=== PATIENT | male | born 1950 | race Caucasian/White ===

== ENCOUNTER 2023-04-27 17:59 | Emergency (ER) | payer OTHER, SELFPAY ==
--- NOTE | 2023-04-27 | ECG_ITS ---
Test Reason : HYPERTENSION Blood Pressure : / mmHG Vent. Rate : 073 BPM Atrial Rate : 073 BPM P-R Int : 158 ms QRS Dur : 094 ms QT Int : 366 ms P-R-T Axes : 028 -49 085 degrees QTc Int : 403 ms Artifact in tracing Normal sinus rhythm Incomplete right bundle branch block Left anterior fascicular block Minimal voltage criteria for LVH, may be normal variant ( R in aVL ) Nonspecific T wave abnormality Abnormal ECG No previous ECGs available Referred By: Generic ED Physician Electronically Signed By:MARY ERAZO
--- NOTE | 2023-04-27 07:49 | ECG_ITS ---
Test Reason : AMS Blood Pressure : / mmHG Vent. Rate : 073 BPM Atrial Rate : 073 BPM P-R Int : 188 ms QRS Dur : 092 ms QT Int : 412 ms P-R-T Axes : 008 045 029 degrees QTc Int : 453 ms Normal sinus rhythm Cannot rule out Inferior infarct , age undetermined Nonspecific ST and T wave abnormality Abnormal ECG When compared with ECG of 27-APR-2023 18:43, Left anterior fascicular block is no longer Present Incomplete right bundle branch block is no longer Present Referred By: Alireza Badillo Electronically Signed By:MARY ERAZO
[2023-04-27 18:56] LABS: MANUAL DIFF FLAG NO
[2023-04-27 18:59] VITALS: BP 186/95; BP 194/106; PULSE 78; PULSE 84; RESP 10; TEMP 37; O2SAT 97; O2SAT 98; BMI 32.8
[2023-04-27 19:03] LABS: Basophils Absolute Auto 0.1 X10*3/uL (0.0-0.2); Basophils Percent Auto 0.5 % (0-2); Eosinophils Absolute Auto 0.1 X10*3/uL (0.0-0.4); Eosinophils Percent Auto 1.4 % (0-4); Hematocrit 42.9 % (42.0-52.0); Hemoglobin 14.8 g/dl (14.0-18.0); Imm Gran Abs Auto 0.03 X10*3/uL (0.00-0.03); Imm Gran Pct Auto 0.3 % (0.0-0.4); Lymphocytes Absolute Auto 2.2 X10*3/uL (1.2-4.9); Lymphocytes Percent Auto 22.9 % (20-40); Mean Corpuscular HGB Conc 34.5 g/dl (31.0-36.0); Mean Corpuscular Volume 86.8 fL (80.0-98.0); Mean Platelet Volume 10.6 fL (9.4-12.4); Monocytes Absolute Auto 0.7 X10*3/uL (0.1-1.2); Monocytes Percent Auto 6.8 % (2-11); Neutrophils Absolute Auto 6.5 x10*3/uL (2.0-8.3); Neutrophils Percent Auto 68.1 % (45-73); Platelet Count 235 X10*3/uL (160-400); Red Blood Count 4.94 X10*6/uL (4.60-5.80); Red Cell Distribution Width 13.2 % (11.0-16.0); White Blood Count 9.6 X10*3/uL (4.8-10.8)
[2023-04-27 19:09] LABS: Prothrombin Time 12.2 SEC (11.1-13.3)
--- NOTE | 2023-04-27 19:09 | PC.NURSE ---
arrived via ambulance from [facility], eval of high blood pressure over past 2 days. 200s/100s. pt reports hargrove/dizziness. no blurry vision. on metoprolol. a+o x3, speech clear. neuros intact.
[2023-04-27 19:10] VITALS: BP 155/90; PULSE 71; RESP 16; O2SAT 96
[2023-04-27 19:18] LABS: Alanine Aminotransferase 18 U/L (0-40); Albumin Level 4.1 g/dL (3.5-5.0); Alkaline Phosphatase 74 U/L (39-117); Anion Gap 16 (12-20); Aspartate Amino Transferase 15 U/L (5-37); Bilirubin Total 0.5 mg/dL (0.0-1.0); Blood Urea Nitrogen 11 mg/dL (9-16); Calcium 9.8 mg/dL (8.4-10.2); Carbon Dioxide 29 mmol/L (22-29); Chloride 101 mmol/L (96-108); Creatinine Clr Calc Pharmacy 77.6; Estimated Glomerular Filt Rate > 60; Glucose Random 165 mg/dL (60-115); Sodium 142 mmol/L (135-145); Total Protein 7.6 g/dL (6.5-8.0)
--- NOTE | 2023-04-27 19:18 | PC.NURSE ---
Assumed care of pt at 19:30, A & O x 4, endorsing chronic L shoulder pain 01/21 but does not wish to be medicated, takes Gabapentin 3x daily. Endorses no other complaints at this time. Awaiting lab results and ED provider.
--- NOTE | 2023-04-27 19:22 | ED_ITS ---
HPI - General Adult General Chief complaint: General Medical Stated complaint: HIG BP 182/96,MEDS NOT WORKING X2 FROM SNF PER EMS Time Seen by Provider: 04/27/23 19:05 Source: patient Mode of arrival: EMS Limitations: no limitations History of Present Illness HPI narrative: Patient with anxiety depression came from assisted living place for elevated blood pressure of 200/100 last blood pressure was 182/96 on arrival was 194/106 repeat blood pressure was 154/82. Patient is stressed out because of the new facility which he does not like also worried about storm coming patient does not have any history of hypertension also complaining of chronic low back Related Data Allergies Allergy/AdvReac Type Severity Reaction Status Date / Time No Known Allergies Allergy Verified 04/27/23 19:49 Review of Systems 2 Review of Systems: Yes all other systems are reviewed and are negative [facility] Social History Social History Smoked in Last 30 Days: No Use of substances other than those prescribed or required for medical reasons: No Advance Directives: No Advance Directives Information Provided: No Physical Exam ED Vital Signs: Vital Signs - 24 hr 04/27/23 18:59 04/27/23 19:10 04/27/23 19:25 Temperature 98.6 F Pulse Rate 78 71 106 H Respiratory Rate 10 L 16 Blood Pressure 194/106 H 155/90 H 154/82 H Pulse Oximetry 97 96 97 Oxygen Delivery Method Room Air Room Air Room Air 04/27/23 20:00 Temperature Pulse Rate 80 Respiratory Rate 16 Blood Pressure 154/82 H Pulse Oximetry Oxygen Delivery Method BMI result Body Mass Index 32.8 Appearance: Alert. Oriented X3. No acute distress. Obese Eyes: PERRLA, No Nystagmus ENT: Pharynx normal. Oral Mucosa moist Neck: Normal inspection. Neck supple. CVS: Normal heart rate and rhythm. Pulses normal. Respiratory: No respiratory distress. Equal air entry bilateral, no wheezing/rales/rhonchi Abdomen: Soft and nontender. Bowel sounds are present, no mass palpable, no CVA tenderness Skin: Skin warm and dry. Normal skin color. Normal skin turgor. Extremities: No lower extremity edema. No calf tenderness Neuro: Oriented X 3. No motor deficit. Medications Administered Discontinued Medications Generic Name Dose Route Start Last Admin Trade Name Freq PRN Reason Stop Dose Admin Oxycodone HCl 10 mg 04/27/23 19:49 04/27/23 20:12 Oxycodone Hcl Immed Release 5 Mg Tablet PO 04/27/23 19:50 10 mg ONCE ONE Administration Medical Decision Making Medical Decision Making [facility] Narrative: Patient with transient elevated blood pressure secondary to stress with no history of hypertension repeat blood pressure stable labs are stable patient has a chronic low back pain was given oxycodone in the ER advised to close monitor the blood pressure and follow with PCP Lab Data [facility] Lab Attestation statement: I reviewed the patient's lab results. 04/27/23 18:52 04/27/23 18:52 Labs: Lab Results 04/27/23 Range/Units 18:52 WBC 9.6 (4.8-10.8) X10*3/uL RBC 4.94 (4.60-5.80) X10*6/uL Hgb 14.8 (14.0-18.0) g/dl Hct 42.9 (42.0-52.0) % MCV 86.8 (80.0-98.0) fL MCH 30.0 (27.0-33.0) pg MCHC 34.5 (31.0-36.0) g/dl RDW 13.2 (11.0-16.0) % Plt Count 235 (160-400) X10*3/uL MPV 10.6 (9.4-12.4) fL Immature Gran % (Auto) 0.3 (0.0-0.4) % Neut % (Auto) 68.1 (45-73) % Lymph % (Auto) 22.9 (20-40) % [place] % (Auto) 6.8 (2-11) % Eos % (Auto) 1.4 (0-4) % Baso % (Auto) 0.5 (0-2) % Lymph # (Auto) 2.2 (1.2-4.9) X10*3/uL [place] # (Auto) 0.7 (0.1-1.2) X10*3/uL Eos # (Auto) 0.1 (0.0-0.4) X10*3/uL Baso # (Auto) 0.1 (0.0-0.2) X10*3/uL Abs Immat Gran (auto) 0.03 (0.00-0.03) X10*3/uL Absolute Neuts (auto) 6.5 (2.0-8.3) x10*3/uL Absolute Nucleated RBC 0.000 (0.0-0.012) X10*3/uL Nucleated RBC % (auto) 0.0 (0.0-0.2) /100WBC PT 12.2 (11.1-13.3) SEC INR 1.0 (0.9-1.1) Sodium 142 (135-145) mmol/L Potassium 4.0 (3.3-5.1) mmol/L Chloride 101 (96-108) mmol/L Carbon Dioxide 29 (22-29) mmol/L Anion Gap 16 (12-20) BUN 11 (9-16) mg/dL Creatinine 1.10 (0.5-1.4) mg/dL Estim Creat Clear Calc 77.6 Estimated GFR > 60 Random Glucose 165 H (60-115) mg/dL Calcium 9.8 (8.4-10.2) mg/dL Total Bilirubin 0.5 (0.0-1.0) mg/dL AST 15 (5-37) U/L ALT 18 (0-40) U/L Alkaline Phosphatase 74 (39-117) U/L Troponin I High Sens 3.7 (<3.5-35.0) ng/L Total Protein 7.6 (6.5-8.0) g/dL Albumin 4.1 (3.5-5.0) g/dL Independent Interpretation I performed an independent interpretation of an: EKG Interpretation: Normal sinus rhythm heart rate 73 beats per minute incomplete RBBB mild LVH no acute ST-T changes no acute ischemia Discharge Plan Discharge Clinical Impression: Transient hypertension Patient Disposition: Home, Self-Care Instructions: Hypertension (ED) Additional Instructions: Check blood pressure daily You may have elevated blood pressure secondary to stress at this time there is no diagnosis of hypertension Follow-up with PCP Interventions: ED Discharge Assessment Last Done: 04/27/23 20:59 Discharge Date/Time: 04/27/23 21:00
[2023-04-27 19:25] VITALS: BP 154/82; PULSE 106; O2SAT 97
[2023-04-27 19:25] LABS: Troponin-I High Sensitivity 3.7 ng/L (<3.5-35.0)
[2023-04-27 20:00] VITALS: BP 154/82; PULSE 80; RESP 16
[2023-04-27] MEDS: oxyCODONE HCl Immed Release 5 MG TABLET 10 MG PO (20:12)
== END 2023-04-27 21:00 | disposition home or self-care (01) ==
PROVIDERS: Emergency Provider Internal Medicine
DX: R03.0 Elevated blood-pressure reading, without diagnosis of hypertension (principal); M54.50 Low back pain, unspecified; R41.82 Altered mental status, unspecified
CPT/HCPCS: 36415; 80053; 84484; 85025; 85610; 93005; 99283; 99285

== ENCOUNTER → 2023-04-27 18:43 | Outpatient (BNV) | payer OTHER, SELFPAY | PROVIDERS: Emergency Provider Internal Medicine; Visit Provider Internal Medicine | DX: R41.82 Altered mental status, unspecified (principal) | CPT/HCPCS: 93010 ==

== ENCOUNTER 2023-09-25 08:06 | Emergency (ER) | payer OTHER, SELFPAY ==
[2023-09-25] VITALS (8 sets, daily range): BP systolic 102–186; BP diastolic 60–96; PULSE 71–110; RESP 14–21; TEMP 36.3–36.7; O2SAT 93–97; BMI 32.5; BMI 33.6
--- NOTE | ~2023-09-25 | XR_ITS ---
EXAMINATION: XR CHEST CLINICAL INFORMATION: Chest pain COMPARISON: None available. TECHNIQUE: Frontal view of the chest was obtained. FINDINGS: Lungs grossly clear given portable lordotic positioning. Heart and pulmonary vessels are normal. XR/XR chest 1V IMPRESSION: No active disease.
--- NOTE | 2023-09-25 08:11 | ECG_ITS ---
Test Reason : chest pain Blood Pressure : / mmHG Vent. Rate : 086 BPM Atrial Rate : 086 BPM P-R Int : 166 ms QRS Dur : 076 ms QT Int : 414 ms P-R-T Axes : 063 -65 156 degrees QTc Int : 495 ms Normal sinus rhythm Left axis deviation Low voltage QRS Inferior-posterior infarct (cited on or before 27-APR-2023) Anterolateral infarct , age undetermined Abnormal ECG When compared with ECG of 27-APR-2023 18:53, Significant changes have occurred Referred By: Generic ED Physician Electronically Signed By:MARY ERAZO
[2023-09-25 08:38] LABS: MANUAL DIFF FLAG NO
[2023-09-25 08:40] LABS: Basophils Absolute Auto 0.1 X10*3/uL (0.0-0.2); Basophils Percent Auto 0.4 % (0-2); Eosinophils Absolute Auto 0.1 X10*3/uL (0.0-0.4); Eosinophils Percent Auto 0.6 % (0-4); Hematocrit 43.3 % (42.0-52.0); Hemoglobin 15.8 g/dl (14.0-18.0); Imm Gran Abs Auto 0.05 X10*3/uL (0.00-0.03); Imm Gran Pct Auto 0.4 % (0.0-0.4); Lymphocytes Absolute Auto 2.3 X10*3/uL (1.2-4.9); Lymphocytes Percent Auto 16.6 % (20-40); Mean Corpuscular HGB Conc 36.5 g/dl (31.0-36.0); Mean Corpuscular Hemoglobin 31.7 pg (27.0-33.0); Mean Corpuscular Volume 86.8 fL (80.0-98.0); Mean Platelet Volume 10.3 fL (9.4-12.4); Monocytes Percent Auto 7.2 % (2-11); Neutrophils Absolute Auto 10.3 x10*3/uL (2.0-8.3); Neutrophils Percent Auto 74.8 % (45-73); Platelet Count 232 X10*3/uL (160-400); Red Blood Count 4.99 X10*6/uL (4.60-5.80); Red Cell Distribution Width 12.2 % (11.0-16.0); White Blood Count 13.8 X10*3/uL (4.8-10.8)
--- NOTE | 2023-09-25 08:46 | ED.CHESTPAIN ---
HPI - Chest Pain General Chief Complaint: Chest Pain Stated Complaint: CHEST PAIN DOWN L ARM X24 HRS FROM [facility] PER EMS Time Seen by Provider: 09/25/23 08:15 Source: patient Mode of arrival: EMS Limitations: no limitations History of Present Illness ED Provider: HEIDI GALVIN narrative: 72 yo male with PMH of GERD, HTN, HLD, CAD s/p 2 stents at [facility] 13 years ago who presents with chest pain on and off for 2 days while at rest that he notes travels to L arm with mild dyspnea. He thought it was GERD. He notes this feels similar to when he had his prior stents. He is at [facility] and they gave him nitro last night which helped. EMS gave 324mg ASA this AM. MD complaint: chest pain Pertinent past history: coronary artery disease Onset (ago): day(s) (2) Timing of current episode: episodic Prior episodes: Yes Onset: during rest Pain location: substernal Pain radiation: left arm Severity: moderate Quality: heaviness Relieving factors: nitroglycerin Exacerbating factors: nothing Associated symptoms: dyspnea Treatment prior to arrival: aspirin Related Data Allergies Allergy/AdvReac Type Severity Reaction Status Date / Time No Known Allergies Allergy Verified 09/25/23 08:23 Review of Systems Review of Systems: Constitutional : No Weight loss, No Fever, No Chills ENT/Mouth : No sore throat, No Rhinorrhea Eyes: No Eye Pain, No Swelling Cardiovascular : pos Chest Pain, pos SOB, no Dyspnea on Exertion, No Orthopnea, No Edema, No Palpitations Respiratory : No Cough, No Sputum Gastrointestinal : no Nausea, No Vomiting, No Diarrhea, No abdominal Pain, No Hematochezia, No Melena Genitourinary : No Dysuria, No Urinary Frequency Musculoskeletal : No joint pain, No Myalgias, No Joint Swelling Skin : No Skin Lesions, No rash Neuro : No Weakness, No Numbness, No Dizziness, No Headache Psych : No Anxiety/Panic, No Depression All other systems reviewed and are negative [facility] Past Medical History Attestation statement: The following information was validated with the patient. Source: old records reviewed Medical History (Updated 09/25/23 @ 09:30 by Caroline Ziegler DO) Depression Hyperlipidemia CAD (coronary artery disease) HTN (hypertension) GERD (gastroesophageal reflux disease) Social History Social History (Updated 09/25/23 @ 08:53 by Caroline Ziegler DO) Patient Tobacco Use Status: Former Tobacco user Smoked in Last 30 Days: No Use of substances other than those prescribed or required for medical reasons: No Advance Directives: No Advance Directives Information Provided: Yes Physical Exam Vital Signs: Vital Signs: Last Vital Signs Temp 97.4 F 09/25/23 14:37 Pulse 82 09/25/23 14:37 Resp 14 09/25/23 14:37 BP 113/74 09/25/23 14:37 Pulse Ox 94 09/25/23 14:37 O2 Del Method Room Air 09/25/23 14:37 BMI result Body Mass Index 33.6 Appearance: Alert. Oriented X3. No acute distress. Eyes: Pupils equal, round and reactive to light. ENT: Pharynx normal. Neck: Normal inspection. Neck supple. CVS: Normal heart rate and rhythm. Pulses normal. Respiratory: No respiratory distress. Breath sounds normal. Abdomen: Soft and nontender. Skin: Skin warm and dry. Normal skin color. Normal skin turgor. Extremities: No lower extremity edema. venous stasis hyperpigmentation 2+ DP pulses Neuro: Oriented X 3. No motor deficit. No sensory deficit. Course Course Course Narrative: patient c/o chest pain at this time 940am nitro paste ordered he states it is 4/10. will reassess if he needs nitro gtt. I did notify [facility] and now they have escalated this to Dr. Cho Reevaluation(s) Reevaluation #1: no improvement with nitro paste still 4/10 will start nitro gtt 10am Dr. Cho accepts patient to [facility] Medications Administered Discontinued Medications Generic Name Dose Route Start Last Admin Trade Name Hannah PRN Reason Stop Dose Admin Atorvastatin Calcium 40 mg 09/25/23 09:25 09/25/23 09:40 Atorvastatin Calcium 40 Mg Tablet PO 09/25/23 09:26 40 mg ONCE ONE Administration Heparin Sodium (Porcine) 4,000 unit 09/25/23 09:25 09/25/23 10:00 Heparin Sodium,Porcine 5,000 Unit/Ml Vial IVPUSH 09/25/23 09:26 4,000 unit ONCE ONE Administration Heparin Sodium/Sodium Chloride 25,000 unit in 250 mls @ 0 mls/hr 09/25/23 10:00 09/25/23 10:07 Heparin Sodium,Porcine/1/2ns IVCONT 8.9 units/kg/hr .Q0M CAL 10 mls/hr Administration Protocol Per Protocol Nitroglycerin/Dextrose 100 mg in 250 mls @ 0 mls/hr 09/25/23 10:15 09/25/23 10:28 Nitroglycerin/D5w IVCONT 20 mcg/min .Q0M CAL 3 mls/hr Administration Protocol Per Protocol Nitroglycerin 1 inch 09/25/23 09:34 09/25/23 09:38 Nitroglycerin 2 % Oint 1 Gm Packet TRANSDERMA 09/25/23 09:35 1 inch ONCE ONE Administration Medical Decision Making Medical Decision Making MDM Narrative: 72 yo male with PMH of GERD, HTN, HLD, CAD s/p 2 stents at [facility] 13 years ago here with c/o chest pain that is similar to priors where he ended up with stents at this time given his history and concerning EKG changes I have ordered labs and did run the case by Cardiology who would recommend transfer to [facility]. The patient denies any contraindications to heparin. Troponin ordered, labs, CXR - he was already given aspirin by EMS and he states he is pain free. Differential Diagnosis Differential Diagnoses: The differential diagnosis associated with the presentation includes ACS, NSTEMI Admission/Observation Consideration of admission/observation: Escalation of care including admission/observation considered call to [facility] at 928am given EKG changes elevated troponin heparin, statin ordered Consult Healthcare Provider Management of the patient was discussed with: [employer] (Earle aware of EKG changes on arrival ) Lab Data [facility] Lab Attestation statement: I reviewed the patient's lab results. 09/25/23 10:17 09/25/23 08:34 Labs: Lab Results 09/25/23 09/25/23 Range/Units 08:34 10:17 WBC 13.8 H 15.4 H (4.8-10.8) X10*3/uL RBC 4.99 5.13 (4.60-5.80) X10*6/uL Hgb 15.8 16.2 (14.0-18.0) g/dl Hct 43.3 44.5 (42.0-52.0) % MCV 86.8 86.7 (80.0-98.0) fL MCH 31.7 31.6 (27.0-33.0) pg MCHC 36.5 H 36.4 H (31.0-36.0) g/dl RDW 12.2 12.2 (11.0-16.0) % Plt Count 232 225 (160-400) X10*3/uL MPV 10.3 10.2 (9.4-12.4) fL Immature Gran % (Auto) 0.4 (0.0-0.4) % Neut % (Auto) 74.8 H (45-73) % Lymph % (Auto) 16.6 L (20-40) % [place] % (Auto) 7.2 (2-11) % Eos % (Auto) 0.6 (0-4) % Baso % (Auto) 0.4 (0-2) % Lymph # (Auto) 2.3 (1.2-4.9) X10*3/uL [place] # (Auto) 1.0 (0.1-1.2) X10*3/uL Eos # (Auto) 0.1 (0.0-0.4) X10*3/uL Baso # (Auto) 0.1 (0.0-0.2) X10*3/uL Abs Immat Gran (auto) 0.05 H (0.00-0.03) X10*3/uL Absolute Neuts (auto) 10.3 H (2.0-8.3) x10*3/uL Absolute Nucleated RBC 0.000 0.000 (0.0-0.012) X10*3/uL Nucleated RBC % (auto) 0.0 0.0 (0.0-0.2) /100WBC PT 12.1 (11.1-13.3) SEC INR 1.0 (0.9-1.1) APTT 32.9 (26.0-36.8) SEC Sodium 137 (135-145) mmol/L Potassium 4.2 (3.3-5.1) mmol/L Chloride 102 (96-108) mmol/L Carbon Dioxide 24 (22-29) mmol/L Anion Gap 15 (12-20) BUN 14 (9-16) mg/dL Creatinine 0.98 (0.5-1.4) mg/dL Estim Creat Clear Calc 89.3 Estimated GFR > 60 Random Glucose 199 H (60-115) mg/dL Calcium 9.6 (8.4-10.2) mg/dL Magnesium 2.0 (1.6-2.6) mg/dL Total Bilirubin 0.5 (0.0-1.0) mg/dL Direct Bilirubin 0.1 (0.0-0.5) mg/dL AST 88 H (5-37) U/L ALT 40 (0-40) U/L Alkaline Phosphatase 82 (39-117) U/L Troponin I High Sens 29936.0 H* D (<3.5-35.0) ng/L B-Natriuretic Peptide 558 H (<100) pg/mL Total Protein 7.4 (6.5-8.0) g/dL Albumin 3.9 (3.5-5.0) g/dL COVID-19 (OSKAR) Negative (Negative) COVID-19 Clin Com See Note Independent Interpretation I performed an independent interpretation of an: EKG and Plain X-Ray Interpretation: Rate: 86 Rhythm: NSR [place]: left Normal P waves. Normal SHANI. Normal QRS complex. 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 . Radiology Impression Discussion of test interpretation with radiology: I have reviewed the radiologist's reading. Critical Care Time Critical Care Time Critical Care Time: Yes Total Critical Care Time: 60 Attestation: review of records, medical consult, nitro gtt for pain, transfer to tertiary center, repeat assessments I attest to this time spent taking care of the patient Discharge Plan Discharge Clinical Impression: Non-ST elevation [place] (NSTEMI), T wave inversion in EKG Chest pain Qualifiers: Chest pain type: precordial pain Qualified Code(s): R07.2 - Precordial pain Patient Disposition: Xfer Acute Care Hospital Transfer Details: [facility] Interventions: Acute Care Transfer Worksheet (ED) Last Done: 09/25/23 14:37 Discharge Date/Time: 09/25/23 14:39 Print Language: Croatian
[2023-09-25 08:48] LABS: Prothrombin Time 12.1 SEC (11.1-13.3)
[2023-09-25 08:50] LABS: Partial Thromboplastin Time 32.9 SEC (26.0-36.8)
[2023-09-25 08:59] LABS: Alanine Aminotransferase 40 U/L (0-40); Albumin Level 3.9 g/dL (3.5-5.0); Alkaline Phosphatase 82 U/L (39-117); Anion Gap 15 (12-20); Aspartate Amino Transferase 88 U/L (5-37); Bilirubin Direct 0.1 mg/dL (0.0-0.5); Bilirubin Total 0.5 mg/dL (0.0-1.0); Blood Urea Nitrogen 14 mg/dL (9-16); Calcium 9.6 mg/dL (8.4-10.2); Carbon Dioxide 24 mmol/L (22-29); Chloride 102 mmol/L (96-108); Creatinine Clr Calc Pharmacy 89.3; Estimated Glomerular Filt Rate > 60; Glucose Random 199 mg/dL (60-115); Potassium 4.2 mmol/L (3.3-5.1); Sodium 137 mmol/L (135-145); Total Protein 7.4 g/dL (6.5-8.0)
[2023-09-25 09:02] LABS: B Type Natriuretic Peptide 558 pg/mL (<100)
[2023-09-25] MEDS: Nitroglycerin 2 % Oint 1 GM Packet 1 INCH TRANSDERMA (09:38)
[2023-09-25] MEDS: Atorvastatin Calcium 40 MG TABLET PO (09:40)
[2023-09-25] MEDS: Heparin Sodium,Porcine 5,000 UNIT/ML VIAL 4000 UNIT IVPUSH (10:00)
[2023-09-25] MEDS: Heparin Sodium,Porcine/1/2NS 25,000 UNIT/250 ML IV.SOLN 10 UNIT IVCONT (10:07)
--- NOTE | 2023-09-25 10:18 | PC.NURSE ---
heparin drip started. lab called and time changed for repeat PT-HD for 160. nitropaste wiped clean off per verbal order from DR. Ziegler.
[2023-09-25 10:24] LABS: Hematocrit 44.5 % (42.0-52.0); Hemoglobin 16.2 g/dl (14.0-18.0); Mean Corpuscular HGB Conc 36.4 g/dl (31.0-36.0); Mean Corpuscular Hemoglobin 31.6 pg (27.0-33.0); Mean Corpuscular Volume 86.7 fL (80.0-98.0); Mean Platelet Volume 10.2 fL (9.4-12.4); Platelet Count 225 X10*3/uL (160-400); Red Blood Count 5.13 X10*6/uL (4.60-5.80); Red Cell Distribution Width 12.2 % (11.0-16.0); White Blood Count 15.4 X10*3/uL (4.8-10.8)
[2023-09-25] MEDS: Nitroglycerin/D5W 100 MG/250 ML INFUS..BTL IVCONT (10:28)
[2023-09-25 10:43] LABS: COVID-19 Test Negative (Negative); IDNOW Serial# 152EDE1D
--- NOTE | 2023-09-25 14:01 | PC.NURSE ---
report given to [address]
== END 2023-09-25 14:39 | disposition short-term general hospital (02) ==
PROVIDERS: Emergency Provider Emergency Medicine
DX: I21.4 Non-ST elevation (NSTEMI) myocardial infarction (principal); I10 Essential (primary) hypertension; I25.10 Atherosclerotic heart disease of native coronary artery without angina pectoris; Z95.5 Presence of coronary angioplasty implant and graft; Z11.52 Encounter for screening for COVID-19
CPT/HCPCS: 36415; 71045; 80048; 80076; 83735; 83880; 84484; 85025; 85027; 85610; 85730; 87635; 93005; 96374; 96375; 99285; J1644; J2305

== ENCOUNTER → 2023-09-25 08:11 | Outpatient (BNV) | payer OTHER, SELFPAY | PROVIDERS: Emergency Provider Emergency Medicine; Visit Provider Internal Medicine | DX: R07.9 Chest pain, unspecified (principal); R94.31 Abnormal electrocardiogram [ECG] [EKG] | CPT/HCPCS: 93010 ==

== ENCOUNTER 2024-02-25 17:46 | Emergency (ER) | payer OTHER, SELFPAY ==
--- NOTE | ~2024-02-25 | CT_ITS ---
EXAMINATION: CT HEAD WITHOUT CONTRAST CT MAXILLOFACIAL WITHOUT CONTRAST CT CERVICAL SPINE WITHOUT CONTRAST CLINICAL INFORMATION: Fall COMPARISON: None TECHNIQUE: Multidetector CT of the head, maxillofacial bones, and cervical spine was performed without intravenous contrast. Reformatted axial, coronal and sagittal images were reviewed. This CT examination was performed using dose optimization techniques as appropriate, variously including the following: *Automated exposure control *Adjustment of mA and/or kV according to patient size (this includes techniques or standardized protocols for targeted exams where dose is matched to indication/reason for exam; i.e. extremities or head) *Use of iterative reconstruction technique DLP: 417 mGy-cm FINDINGS: HEAD: No intracranial hemorrhage, extra-axial fluid collection, or midline shift is identified. Moncada-white matter differentiation is preserved. Prominence of the cerebral sulci with commensurate ventriculomegaly consistent with age-related cerebral volume loss. Dense calcification of the anterior falx. Basal cisterns are within normal limits. Paranasal sinuses are clear. Mastoid air cells and middle ear cavities are clear. No acute calvarial fractures. Dolichoectatic vertebrobasilar artery. MAXILLOFACIAL: No displaced fracture of the left frontal sinus. Overlying small subcutaneous hematoma. Foci of gas extends medially to the right lacrimal duct and along the right medial preseptal soft tissues. Fat stranding is present within the right medial extraconal fat. The intraconal fat appears within normal limits. No retrobulbar hematoma. The globes, lenses, extraocular muscles, and optic nerves appear within normal limits bilaterally. The lamina paprycea and floor and lateral schneider of the orbits are intact. There is no TMJ dislocation. Maxillary, sphenoid, and ethmoid sinuses are clear. CERVICAL SPINE: There is no fracture, malalignment or prevertebral soft tissue abnormality seen in the cervical spine. There is no abnormal widening of the predental space, separation of the lateral masses of C1 or facet joint distraction. Vertebral body and intervertebral disc height are normal. Multilevel degenerative changes from C5-C7, most pronounced at C6-7 resulting in moderate central canal and mild bilateral neural foraminal stenosis. CT/CT cervical spine wo IV con IMPRESSION: CT HEAD: 1. No acute intracranial abnormality. 2. Age-related cerebral volume loss. CT MAXILLOFACIAL: 1. Minimally displaced fracture of the left frontal sinus with small overlying subcutaneous hematoma. Foci of gas extending into the right medial preseptal soft tissues of the eye near the lacrimal duct. Lacrimal duct injury cannot be excluded. Also, a small amount of stranding is seen within the right medial extraconal fat. No retrobulbar hematoma or globe rupture. CT CERVICAL SPINE: 1. No acute fracture or traumatic spondylolisthesis of the cervical spine. 2. Multilevel degenerative changes, most pronounced at C6-7 where there is moderate central canal and mild bilateral neural foraminal stenosis. Electronically signed by: Rubén Arroyo DO 02/25/2024 10:19 PM LOAN RESENDIZ
--- NOTE | ~2024-02-25 | XR_ITS ---
EXAMINATION: CHEST AND PELVIS CLINICAL INFORMATION: Fall COMPARISON: Chest radiograph 09/25/2023 TECHNIQUE: Single view chest with single view pelvis FINDINGS: No significant abnormalities seen involving the heart and lungs or mediastinum. Degenerative changes are present in the spine. No pelvic or hip fracture is seen. There are some mild degenerative changes present in the hips. XR/XR pelvis 1-2V IMPRESSION: 1. No acute intrathoracic disease. 2. No pelvic or hip fracture. 3. Degenerative changes in the spine and hips. Electronically signed by: Brent Blandon MD 02/25/2024 09:08 PM LOAN
--- NOTE | ~2024-02-25 | XR_ITS ---
EXAMINATION: CHEST AND PELVIS CLINICAL INFORMATION: Fall COMPARISON: Chest radiograph 09/25/2023 TECHNIQUE: Single view chest with single view pelvis FINDINGS: No significant abnormalities seen involving the heart and lungs or mediastinum. Degenerative changes are present in the spine. No pelvic or hip fracture is seen. There are some mild degenerative changes present in the hips. XR/XR chest 1V IMPRESSION: 1. No acute intrathoracic disease. 2. No pelvic or hip fracture. 3. Degenerative changes in the spine and hips. Electronically signed by: Brent Blandon MD 02/25/2024 09:08 PM LOAN
[2024-02-25 17:53] VITALS: BP 114/72; PULSE 63; O2SAT 96
--- NOTE | 2024-02-25 17:57 | ECG_ITS ---
Test Reason : fall Blood Pressure : / mmHG Vent. Rate : 057 BPM Atrial Rate : 057 BPM P-R Int : 172 ms QRS Dur : 088 ms QT Int : 446 ms P-R-T Axes : 037 -44 022 degrees QTc Int : 434 ms Sinus bradycardia Left axis deviation Low voltage QRS Cannot rule out Anterior infarct (cited on or before 27-APR-2023) Abnormal ECG When compared with ECG of 25-SEP-2023 08:17, Anterolateral T wave changes have improved. Referred By: Isreal Merchant Electronically Signed By:Flavio Paige
--- NOTE | 2024-02-25 17:59 | ED_ITS ---
HPI - General Adult General Chief complaint: Fall Stated complaint: fall at snf, +thinners, lac on nose Time Seen by Provider: 02/25/24 17:53 Source: patient and EMS History of Present Illness ED Provider: Shonda HPI narrative: 72-year-old male with past medical history of GERD, hypertension, hyperlipidemia, CAD s/p stenting on Brilinta presenting for fall with head strike. Patient was at his facility lying on his bed when he sat up and stood up and subsequently fell lightheaded and fell forward striking his face on the ground. Patient denies loss of consciousness however he did require assistance getting up. Patient sustained injury to his nose that is actively bleeding. He endorses facial pain however denies head pain, neck pain, chest pain, sob, abd pain. Per EMS patient was a&ox4 in transport with stable vitals Related Data Allergies Allergy/AdvReac Type Severity Reaction Status Date / Time No Known Allergies Allergy Verified 02/25/24 18:03 Review of Systems 2 Review of Systems: patient endorses facial pain Yes all other systems are reviewed and are negative [facility] Past Medical History Attestation statement: The following information was validated with the patient. [facility] Narrative: GERD, HTN, HLD, CAD s/p stent Source: old records reviewed Medical History (Updated 02/26/24 @ 01:44 by Isreal Merchant MD) Depression Hyperlipidemia CAD (coronary artery disease) HTN (hypertension) GERD (gastroesophageal reflux disease) Social History Social History (Updated 09/25/23 @ 08:53 by Caroline Ziegler DO) Alcohol intake: former Patient Tobacco Use Status: Former Tobacco user Smoked in Last 30 Days: No Use of substances other than those prescribed or required for medical reasons: No Advance Directives: Yes Advance Directives Information Provided: No Advance Directives on File: Yes Advance Directives Date on File: 09/26/23 Physical Exam ED Vital Signs: Vital Signs - 24 hr 02/25/24 18:02 02/25/24 22:05 Temperature 98.7 F 97.7 F Pulse Rate 59 51 Respiratory Rate 18 11 L Blood Pressure 138/75 104/60 Pulse Oximetry 98 99 Oxygen Delivery Method Room Air Room Air BMI result Body Mass Index 37.1 Well-appearing male in no acute distress with C-collar in place; no midline C- spine tenderness Active bleeding from laceration to nasal bridge with abrasion vs laceration between eye brows Visual acuity intact with intact extraocular movement Chest wall stable nontender; lungs clear to auscultation bilaterally Abdomen soft, nontender however mildly distended Pelvis stable nontender Patient moving all extremities freely; no focal neurologic deficits appreciated Venous stasis dermatitis bilateral lower extremities Medications Administered Discontinued Medications Generic Name Dose Route Start Last Admin Trade Name Hannah PRN Reason Stop Dose Admin Acetaminophen 650 mg 02/25/24 22:24 02/25/24 22:51 Acetaminophen 325 Mg Tablet PO 02/25/24 22:25 650 mg ONCE ONE Administration Cefazolin Sodium 2 gm 02/26/24 00:54 02/26/24 01:14 Cefazolin Sodium 1 Gm Vial IVPUSH 02/26/24 00:55 2 gm ONCE ONE Administration Medical Decision Making Medical Decision Making [facility] Narrative: This is a 73-year-old male presenting for presyncope and follow up. I suspect that patient experienced a vasovagal/orthostatic episode however I am also considering cardiac event. Patient sustained facial trauma and I am concerned for nasal fracture versus other facial fractures. I am also worried about head bleed and neck trauma. Labs and imaging studies ordered Labs notable for stable H&H, mild leukocytosis, normal coags, 2- troponins, electrolytes within normal limits I do not appreciate any signs of ischemia on patient's EKG I do not appreciate head bleed on patient's CT imaging however the radiologist noted frontal and max sinus fracture And I appreciate any fractures on patient's chest x-ray and the Radiology interpretation is negative for acute trauma Patient has laceration to nasal bridge that I repaired with 3 stitches 5.0 stitches Patient was ambulated at the bedside with steady gait I gave patient recommendations for save standing at home. I also gave him return precautions. Patient is comfortable with being discharged Lab Data 02/25/24 18:14 02/25/24 18:14 Labs: Lab Results 02/25/24 02/26/24 Range/Units 18:14 00:44 WBC 11.0 H (4.8-10.8) X10*3/uL RBC 4.37 L (4.60-5.80) X10*6/uL Hgb 13.9 L (14.0-18.0) g/dl Hct 39.7 L (42.0-52.0) % MCV 90.8 (80.0-98.0) fL MCH 31.8 (27.0-33.0) pg MCHC 35.0 (31.0-36.0) g/dl RDW 12.7 (11.0-16.0) % Plt Count 206 (160-400) X10*3/uL MPV 10.2 (9.4-12.4) fL Immature Gran % (Auto) 0.5 H (0.0-0.4) % Neut % (Auto) 66.8 (45-73) % Lymph % (Auto) 20.9 (20-40) % [place] % (Auto) 9.2 (2-11) % Eos % (Auto) 2.1 (0-4) % Baso % (Auto) 0.5 (0-2) % Lymph # (Auto) 2.3 (1.2-4.9) X10*3/uL [place] # (Auto) 1.0 (0.1-1.2) X10*3/uL Eos # (Auto) 0.2 (0.0-0.4) X10*3/uL Baso # (Auto) 0.1 (0.0-0.2) X10*3/uL Abs Immat Gran (auto) 0.05 H (0.00-0.03) X10*3/uL Absolute Neuts (auto) 7.3 (2.0-8.3) x10*3/uL Absolute Nucleated RBC 0.000 (0.0-0.012) X10*3/uL Nucleated RBC % (auto) 0.0 (0.0-0.2) /100WBC PT 10.9 (10.9-12.4) SEC INR 0.9 (0.9-1.1) APTT 33.7 (26.0-36.8) SEC Sodium 137 (135-145) mmol/L Potassium 4.5 (3.3-5.1) mmol/L Chloride 105 (96-108) mmol/L Carbon Dioxide 23 (22-29) mmol/L Anion Gap 14 (12-20) BUN 18 H (9-16) mg/dL Creatinine 1.08 (0.5-1.4) mg/dL Estim Creat Clear Calc 82.9 Estimated GFR > 60 Random Glucose 137 H (60-115) mg/dL Calcium 9.6 (8.4-10.2) mg/dL Troponin I High Sens 5.2 D 5.8 (<3.5-35.0) ng/L Discharge Plan Discharge Clinical Impression: Syncope Qualifiers: Syncope type: unspecified Qualified Code(s): R55 - Syncope and collapse Fracture of frontal sinus Qualifiers: Encounter type: initial encounter Fracture type: closed Qualified Code(s): S 02.19XA - Other fracture of base of skull, initial encounter for closed fracture Patient Disposition: er [facility] Additional Instructions: You were found to have a frontal sinus fracture. Do not blow your nose forcefully, avoid strenuous activity and heavy lifting When standing up please do so slowly and with assistance If you develop any any symptoms such as worsening headache, excessive nasal drainage, dizziness or if you pass out again please return to the emergency department Please schedule an appointment with both the ENT doctor and the program management specialist listening discharge paperwork. You should be evaluated within the next 10 days Patient has 3 stitches in his nose that need to be removed in 5 days Referrals: Jose Angel Fleming [Physician] - 5 days Clifton Gamez [Physician] - 10 days Print Language: Amharic
[2024-02-25 18:02] VITALS: BP 138/75; PULSE 59; RESP 18; TEMP 37.1; O2SAT 98; BMI 37.1
--- NOTE | 2024-02-25 18:06 | PC.NURSE ---
From [facility]. Patient states was laying in bed and went to get up for dinner and became dizzy and fell forward landing on his face. Patient with swelling and lac to nose, c collar placed by EMS . Patient alert and oriented
[2024-02-25 18:18] LABS: MANUAL DIFF FLAG NO
[2024-02-25 18:23] LABS: Basophils Absolute Auto 0.1 X10*3/uL (0.0-0.2); Basophils Percent Auto 0.5 % (0-2); Eosinophils Absolute Auto 0.2 X10*3/uL (0.0-0.4); Eosinophils Percent Auto 2.1 % (0-4); Hematocrit 39.7 % (42.0-52.0); Hemoglobin 13.9 g/dl (14.0-18.0); Imm Gran Abs Auto 0.05 X10*3/uL (0.00-0.03); Imm Gran Pct Auto 0.5 % (0.0-0.4); Lymphocytes Absolute Auto 2.3 X10*3/uL (1.2-4.9); Lymphocytes Percent Auto 20.9 % (20-40); Mean Corpuscular Hemoglobin 31.8 pg (27.0-33.0); Mean Corpuscular Volume 90.8 fL (80.0-98.0); Mean Platelet Volume 10.2 fL (9.4-12.4); Monocytes Percent Auto 9.2 % (2-11); Neutrophils Absolute Auto 7.3 x10*3/uL (2.0-8.3); Neutrophils Percent Auto 66.8 % (45-73); Platelet Count 206 X10*3/uL (160-400); Red Blood Count 4.37 X10*6/uL (4.60-5.80); Red Cell Distribution Width 12.7 % (11.0-16.0)
[2024-02-25 18:33] LABS: Anion Gap 14 (12-20); Blood Urea Nitrogen 18 mg/dL (9-16); Calcium 9.6 mg/dL (8.4-10.2); Carbon Dioxide 23 mmol/L (22-29); Chloride 105 mmol/L (96-108); Creatinine Clr Calc Pharmacy 82.9; Estimated Glomerular Filt Rate > 60; Glucose Random 137 mg/dL (60-115); INTERNATIONAL NORM RATIO 0.9 (0.9-1.1); Potassium 4.5 mmol/L (3.3-5.1); Prothrombin Time 10.9 SEC (10.9-12.4); Sodium 137 mmol/L (135-145)
[2024-02-25 18:35] LABS: Partial Thromboplastin Time 33.7 SEC (26.0-36.8)
[2024-02-25 18:41] LABS: Troponin-I High Sensitivity 5.2 ng/L (<3.5-35.0)
--- NOTE | 2024-02-25 20:18 | PC.NURSE ---
this rn assumed care of pt, pt returned from CT at this time, pt noted to have blood on face. this RN cleaned wound on pt nose, bleeding controlled. clean, dry gauze placed. c collar remains in place.
[2024-02-25 22:05] VITALS: BP 104/60; PULSE 51; RESP 11; TEMP 36.5; O2SAT 99
[2024-02-25] MEDS: Acetaminophen 325 MG TABLET 650 MG PO (22:51)
--- NOTE | 2024-02-25 23:04 | PC.NURSE ---
pt lacerations on face cleaned and dry dressing place. Manny HALL at bedside.
--- NOTE | 2024-02-26 00:33 | PC.NURSE ---
this RN assisted pt in bed change, pt reporting increased dizziness when moving. this RN recommended Orthostatic vitals at this time, provider aware.
[2024-02-26 01:08] LABS: Troponin-I High Sensitivity 5.8 ng/L (<3.5-35.0)
[2024-02-26] MEDS: ceFAZolin Sodium 1 GM VIAL 2 GM IVPUSH (01:14)
--- NOTE | 2024-02-26 01:41 | PC.NURSE ---
report given to Bree BACA at [facility].
== END 2024-02-26 02:00 ==
PROVIDERS: Emergency Provider Student in an Organized Health Care Education/Training Program; PCP Internal Medicine
DX: R55 Syncope and collapse (principal); M54.2 Cervicalgia; R51.9 Headache, unspecified; R07.89 Other chest pain; R10.2 Pelvic and perineal pain; Z79.899 Other long term (current) drug therapy
CPT/HCPCS: 36415; 70450; 70486; 71045; 72125; 72170; 80048; 84484; 85025; 85610; 85730; 93005; 96374; 99284; 99285; J0690

== ENCOUNTER → 2024-02-25 17:57 | Outpatient (BNV) | payer OTHER, SELFPAY | PROVIDERS: Emergency Provider Student in an Organized Health Care Education/Training Program; PCP Internal Medicine; Visit Provider Internal Medicine Cardiovascular Disease | DX: R00.1 Bradycardia, unspecified (principal); R94.31 Abnormal electrocardiogram [ECG] [EKG] | CPT/HCPCS: 93010 ==

== ENCOUNTER 2024-04-23 10:00 | Outpatient (RCR) | payer OTHER, SELFPAY ==
[2024-03-25 13:50] LABS: Glucose, Whole Blood 187 mg/dL (60-115)
== END 2024-05-05 09:25 | disposition home or self-care (01) ==
LOC: HO.CR 10:00
PROVIDERS: PCP Internal Medicine; Visit Provider Internal Medicine
DX: I21.4 Non-ST elevation (NSTEMI) myocardial infarction (principal)
CPT/HCPCS: 82947; 93797; 93798